=== PATIENT | male | born 1970 | race African-American/Black ===

== ENCOUNTER 2017-05-06 14:59 | Emergency (ER) | payer MEDICAID, OTHER ==
[~2017-05-06] VITALS: Ht 185.4 cm; Wt 162.0 kg
[2017-05-06 17:58] VITALS: BP 137/95
== END 2017-05-06 19:52 | disposition home or self-care (01) ==
LOC: ER 16:18
DX: L03.115 Cellulitis of right lower limb (principal); R60.9 Edema, unspecified; I11.0 Hypertensive heart disease with heart failure; I50.9 Heart failure, unspecified
CPT/HCPCS: 93971; 99284; Z7610